=== PATIENT | male | born 1975 | race Hispanic/Latino ===

== ENCOUNTER → 2018-09-20 | Outpatient (CLI) | payer OTHER | END | disposition home or self-care (01) | LOC: RAH 09:40 | PROVIDERS: ATTEND Family Medicine | DX: R16.0 Hepatomegaly, not elsewhere classified (principal) | CPT/HCPCS: 76700 ==

== ENCOUNTER 2018-10-11 05:48 | Day surgery (SDC) | payer OTHER ==
[~2018-10-11] VITALS: Ht 182.9 cm; Wt 95.3 kg
[~2018-10-11 05:48] MED LIST: BACL10TA PO; FLAX100020 PO; GABA600T10 PO; NAPR-1023 PO; NIAC500T7 PO; SODIUM CHLORIDE 0.9% 1000ML 1,000 ML IV ONE; SUMA50TA17 PO
[2018-10-11 06:08] VITALS: BP 121/87
[2018-10-11] MEDS ORDERED: FLUT16H NASAL (06:19)
[2018-10-11 07:47] VITALS: BP 111/73
[2018-10-11 07:50] VITALS: BP 138/84
[2018-10-11 08:03] VITALS: BP 127/90
[2018-10-11 08:10] VITALS: BP 116/86
== END 2018-10-11 08:18 | disposition home or self-care (01) ==
LOC: ENDO 05:48 → DAH 05:48 → ENDO 08:18
PROVIDERS: ATTEND Internal Medicine
DX: K64.0 First degree hemorrhoids (principal); K57.30 Diverticulosis of large intestine without perforation or abscess without bleeding; K31.89 Other diseases of stomach and duodenum; K29.50 Unspecified chronic gastritis without bleeding; K20.9 Esophagitis, unspecified; K92.1 Melena; F15.90 Other stimulant use, unspecified, uncomplicated; G43.909 Migraine, unspecified, not intractable, without status migrainosus; Z79.899 Other long term (current) drug therapy; Z87.891 Personal history of nicotine dependence; Z82.49 Family history of ischemic heart disease and other diseases of the circulatory system; Z83.3 Family history of diabetes mellitus
CPT/HCPCS: 43239; 45378; A4606; J7030

== ENCOUNTER 2019-04-13 20:33 | Emergency (ER) | payer OTHER ==
[~2019-04-13 20:33] MED LIST changes: +FLUT16H NASAL; -SODIUM CHLORIDE 0.9% 1000ML 1,000 ML IV ONE
[2019-04-13 21:57] LABS: BASOPHILS % (AUTO) 1.3 % (0.0-5.0); EOSINOPHILS % (AUTO) 2.2 % (0.0-8.0); HEMATOCRIT 44.1 % (42-54); MEAN CORPUSCULAR HEMOGLOBIN 33.3 pg (27.0-33.0); MEAN CORPUSCULAR HGB CONC 34.9 g/dL (32.0-36.0); MEAN CORPUSCULAR VOLUME 95.5 fL (79-99); MONOCYTES % (AUTO) 9.1 % (3.0-13.0); NEUTROPHILS % (AUTO) 50.4 % (40.0-77.0); NUCLEATED RED BLOOD CELLS 0.1 % (0.0-0.19); PLATELET COUNT (AUTO) 230 K/uL (130-400); RED BLOOD CELL COUNT(AUTO) 4.62 MIL/uL (4.50-6.20); RED CELL DISTRIBUTION WIDTH 13.4 % (11.0-15.5); WHITE BLOOD COUNT (AUTO) 9.2 K/uL (4.8-10.8)
[2019-04-13 22:28] LABS: CREATININE 1.2 mg/dL (0.5-1.5); POTASSIUM 4.3 mmol/L (3.5-5.1)
[2019-04-13 22:32] LABS: ALBUMIN 3.9 g/dL (3.5-5.0); BILIRUBIN,TOTAL 0.4 mg/dL (0.2-1.0); MAGNESIUM 1.5 mg/dL (1.80-2.40); TOTAL PROTEIN, SERUM 7.5 g/dL (6.0-8.3)
[2019-04-13] MEDS ORDERED: MAGNESIUM 2GM PREMIX 50ML 50 ML IV ONE (22:58)
== END 2019-04-14 00:23 | disposition home or self-care (01) ==
LOC: EDH 20:33
DX: R20.2 Paresthesia of skin (principal); E83.42 Hypomagnesemia; F41.9 Anxiety disorder, unspecified
CPT/HCPCS: 36415; 80053; 82550; 83735; 84484; 85025; 93005; 96365; 99285; J3475

== ENCOUNTER → 2019-04-24 | Outpatient (CLI) | payer OTHER | LOC: RAH 13:15 | PROVIDERS: ATTEND Family Medicine | DX: R10.32 Left lower quadrant pain (principal) | CPT/HCPCS: 76870 ==

== ENCOUNTER → 2020-09-13 | Outpatient (CLI) | payer OTHER | END | disposition home or self-care (01) | LOC: RAH 08:54 | PROVIDERS: ATTEND Family Medicine | DX: R79.89 Other specified abnormal findings of blood chemistry (principal) | CPT/HCPCS: 76700 ==

== ENCOUNTER 2020-10-15 05:55 | Day surgery (SDC) | payer OTHER ==
[~2020-10-15] VITALS: Ht 182.9 cm; Wt 102.1 kg
[2020-10-15] VITALS (7 sets, daily range): BP systolic 111–141; BP diastolic 75–94
[~2020-10-15 05:55] MED LIST changes: -BACL10TA PO; -FLAX100020 PO; -GABA600T10 PO; +LORA10TA60 PO; -NAPR-1023 PO; -NIAC500T7 PO; +PROP40TA7 PO; +SERT-438 PO; -SUMA50TA17 PO; +sertraline
[2020-10-15] MEDS ORDERED: SODIUM CHLORIDE 0.9% 1000ML 1,000 ML IV ONE (06:06)
[2020-10-15] MEDS ORDERED: LIDOCAINE HCL-MPF 2% 5ML VIAL ONE (07:10)
[2020-10-15] MEDS ORDERED: PROPOFOL 10 MG/ML 20ML VIAL IV ONE ×2 (07:10→07:11)
[2020-10-15] MEDS ORDERED: GLYCOPYRROLATE 1 MG/5 ML SYRINGE ONE (07:10)
== END 2020-10-15 08:18 | disposition home or self-care (01) ==
LOC: ENDO 05:55 → DAH 05:55 → ENDO 08:18
PROVIDERS: ATTEND Internal Medicine Gastroenterology
DX: D50.0 Iron deficiency anemia secondary to blood loss (chronic) (principal); Z20.822 Contact with and (suspected) exposure to COVID-19; K92.1 Melena; K21.00 Gastro-esophageal reflux disease with esophagitis, without bleeding; R94.5 Abnormal results of liver function studies; K29.50 Unspecified chronic gastritis without bleeding; K62.89 Other specified diseases of anus and rectum; Z79.899 Other long term (current) drug therapy
CPT/HCPCS: 43239; 45380; A4215; A4221; A4222; A4223; A4606; A4620; A4663; C9803; J2704 ×2; J3490 ×2; J7030; U0003

== ENCOUNTER → 2021-07-04 | Outpatient (CLI) | payer OTHER | END | disposition home or self-care (01) | LOC: RAH 11:02 | PROVIDERS: ATTEND Internal Medicine Gastroenterology | DX: R10.11 Right upper quadrant pain (principal) | CPT/HCPCS: 78227; A9537 ==

== ENCOUNTER 2023-09-14 15:16 | Emergency (ER) | payer OTHER ==
[~2023-09-14] VITALS: Ht 182.9 cm; Wt 104.3 kg
[2023-09-14 16:18] LABS: BASOPHILS # (AUTO) 0.11 K/uL (0.00-0.20); BASOPHILS % (AUTO) 1.1 % (0.0-5.0); EOSINOPHILS # (AUTO) 0.24 K/uL (0.00-0.70); EOSINOPHILS % (AUTO) 2.3 % (0.0-8.0); IMMATURE GRANULOCYTE ABSOLUTE 0.11 K/uL (0-1); LYMPHOCYTES # (AUTO) 2.5 K/uL (1.0-4.8); LYMPHOCYTES % (AUTO) 24.4 % (21.0-51.0); MEAN CORPUSCULAR HEMOGLOBIN 32.2 pg (27.0-33.0); MEAN CORPUSCULAR HGB CONC 34.2 g/dL (32.0-36.0); MEAN CORPUSCULAR VOLUME 94.3 fL (79-99); MONOCYTES # (AUTO) 1.1 K/uL (0.1-1.0); MONOCYTES % (AUTO) 10.6 % (3.0-13.0); NEUTROPHILS # (AUTO) 6.2 K/uL (1.8-7.7); NEUTROPHILS % (AUTO) 60.5 % (40.0-77.0); PLATELET COUNT (AUTO) 264 K/uL (130-400); RED BLOOD CELL COUNT(AUTO) 5.09 MIL/uL (4.50-6.20); RED CELL DISTRIBUTION WIDTH 13.2 % (11.0-15.5); WHITE BLOOD COUNT (AUTO) 10.3 K/uL (4.8-10.8)
[2023-09-14 16:28] LABS: CREATININE 1.4 mg/dL (0.5-1.3); POTASSIUM 4.4 mmol/L (3.5-5.1)
[2023-09-14 16:33] LABS: ALBUMIN 4.1 g/dL (3.5-5.0); BILIRUBIN,TOTAL 0.6 mg/dL (0.2-1.0); TOTAL PROTEIN, SERUM 8.1 g/dL (6.0-8.3)
[2023-09-14 17:40] LABS: APPEARANCE,URINE CLEAR (CLEAR); BILIRUBIN,URINE NEGATIVE (NEGATIVE); COLOR,URINE YELLOW (YELLOW); GLUCOSE, URINE (UA) NEGATIVE (NEGATIVE); KETONES,URINE NEGATIVE (NEGATIVE); LEUKOCYTE ESTERASE ,URINE NEGATIVE Leu/uL (NEGATIVE); NITRATE,URINE NEGATIVE (NEGATIVE); OCCULT BLOOD,URINE LARGE (NEGATIVE); PROTEIN,URINE 10 mg/dL (NEGATIVE); UROBILINOGEN,URINE 0.2 mg/dL (0.2-1.0)
[2023-09-14 17:43] LABS: ADD UA MICROSCOPIC YES
[2023-09-14 17:44] LABS: BACTERIA,URINE RARE /HPF (None Seen); MUCUS,URINE RARE LPF (None Seen); RBC,URINE 26-50 /HPF (0-1)
[2023-09-14] MEDS: KETOROLAC 30MG VIAL (30MG/ML) IVP ONE (19:46)
[2023-09-14] MEDS: 0.9%NACL 1000ML 1,000 ML IV ONE (19:46)
[2023-09-14] MEDS ORDERED: IBUP-1493 PO (21:29)
[2023-09-14] MEDS ORDERED: ONDA-104 PO (21:29)
[2023-09-14 21:42] VITALS: BP 140/87; PULSE 82; RESP 18; O2SAT 98
== END 2023-09-14 21:58 | disposition home or self-care (01) ==
LOC: EDH 15:16
DX: N20.0 Calculus of kidney (principal); G89.29 Other chronic pain; Z79.899 Other long term (current) drug therapy
CPT/HCPCS: 99285; 74176; 96374; 96361; 80053; 85025; 81001; 36415; J7030; J1885